=== PATIENT | female | born 1960 | race Caucasian/White ===

== ENCOUNTER 2017-04-11 16:55 | Emergency (ER) | payer BC, OTHER ==
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
[2017-04-11 17:14] VITALS: BP 153/91; PULSE 121; TEMP 98.3; BMI 18.3
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
[2017-04-11] MEDS ORDERED: DIPHTH,PERTUSS(ACELL),TET 0.5 ML DISP.SYRIN IM ONE (19:01)
[2017-04-11 19:24] LABS: BASOPHIL 1.1 % (0-2.0); EOSINOPHIL 1.1 % (0-4.5); MCHC 33.5 g/dl (32.0-36.0); MEAN CELL VOLUME 98.5 fl (80-96); MEAN PLT VOLUME 9.3 fl (7.5-11.1); NEUTROPHILS 61.4 % (42.8-82.8); PLATELET COUNT 237 K/MM3 (134-434); RDW 12.9 % (11.6-15.6); WHITE BLOOD COUNT 10.2 K/mm3 (4.0-10.0)
[2017-04-11 19:46] LABS: ALBUMIN 4.1 g/dl (3.4-5.0); ANION GAP 9 (8-16); BILIRUBIN,TOTAL 0.6 mg/dL (0.2-1.0); CALCIUM 9.7 mg/dL (8.5-10.1); CHOLESTEROL 208 mg/dL (50-200); CO2 31 mmol/L (21-32); CREATININE 0.8 mg/dL (0.55-1.02); GLUCOSE,RANDOM 98 mg/dL (74-106); LDH 173 U/L (84-246); PHOSPHOROUS 3.8 mg/dL (2.5-4.9); SGOT/AST 19 U/L (15-37); SGPT/ALT 21 U/L (12-78); TOT PROT 7.3 g/dl (6.4-8.2)
[2017-04-11 19:47] LABS: ALK PHOS 90 U/L (45-117)
[2017-04-11 20:00] LABS: HIV 1 & 2 AB NEGATIVE; HIV 1 AGp24 NEGATIVE
[2017-04-13 06:06] LABS: HEP B SURFACE AB Non Reactive (.)
== END 2017-04-11 20:19 | disposition home or self-care (01) ==
LOC: JERFT 16:55
DX: S61.230A Puncture wound without foreign body of right index finger without damage to nail, initial encounter (principal); W46.1XXA Contact with contaminated hypodermic needle, initial encounter; Y93.E9 Activity, other interior property and clothing maintenance; Y92.013 Bedroom of single-family (private) house as the place of occurrence of the external cause
CPT/HCPCS: 36415; 80053; 82465; 83615; 84100; 84478; 85025; 86704; 86706; 87340; 87389; 90715; 99281-25

== ENCOUNTER 2018-10-20 13:05 | Emergency (ER) | payer OTHER ==
[2018-10-20 13:43] VITALS: BP 111/67; PULSE 84; TEMP 98.3; BMI 19.0
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
== END 2018-10-20 14:57 | disposition home or self-care (01) ==
LOC: JERFT 13:05 → JER 13:05 → JERFT 14:57
DX: S93.504A Unspecified sprain of right lesser toe(s), initial encounter (principal); M25.531 Pain in right wrist; W22.03XA Walked into furniture, initial encounter; Y93.89 Activity, other specified; Y92.009 Unspecified place in unspecified non-institutional (private) residence as the place of occurrence of the external cause; F41.9 Anxiety disorder, unspecified; I10 Essential (primary) hypertension; F17.210 Nicotine dependence, cigarettes, uncomplicated
CPT/HCPCS: 73110-TC-RT-FY; 73630-TC-RT-FY; 73660-TC-FY; 99281-25

== ENCOUNTER 2019-01-28 00:11 | Emergency (ER) | payer OTHER ==
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
[2019-01-28 01:35] VITALS: BP 138/82; PULSE 95; TEMP 98.1; BMI 26.5
[2019-01-28] MEDS ORDERED: LIDOCAINE HCL 1%, 10 MG/ML (50 mL VIAL) SQ ONE (01:47)
[2019-01-28] MEDS ORDERED: LIDOCAINE HCL 1%, 10 MG/ML (20ML VIAL) ONE (01:49)
== END 2019-01-28 02:24 | disposition home or self-care (01) ==
LOC: JER 00:11
PROC: 0HQ0XZZ Repair Scalp Skin, External Approach (ICD-10-PCS; principal; 2019-01-28)
PROC: 3E023BZ Introduction of Anesthetic Agent into Muscle, Percutaneous Approach (ICD-10-PCS; 2019-01-28)
DX: F10.120 Alcohol abuse with intoxication, uncomplicated (principal); S01.81XA Laceration without foreign body of other part of head, initial encounter; W18.39XA Other fall on same level, initial encounter; Y93.89 Activity, other specified; Y92.018 Other place in single-family (private) house as the place of occurrence of the external cause; Y99.8 Other external cause status
CPT/HCPCS: 12002; 70450-TC; 72125-TC; 96372; 99281-25

== ENCOUNTER 2019-02-05 10:39 | Emergency (ER) | payer OTHER ==
[2019-02-05 10:47] VITALS: BP 138/76; PULSE 80; TEMP 98; BMI 27.2
--- NOTE | 2019-02-05 11:33 | PDOC ---
History of Present Illness - General Chief Complaint: Suture/Staple Removal(Here) Stated Complaint: REMOVE STITCHES Time Seen by Provider: 02/05/19 11:12 History Source: Patient Exam Limitations: No Limitations Past History - Travel Traveled outside of the country in the last 30 days: No Close contact w/someone who was outside of country & ill: No - Past Medical History Allergies/Adverse Reactions: Allergies Allergy/AdvReac Type Severity Reaction Status Date / Time No Known Allergies Allergy Verified 02/05/19 10:47 Home Medications: Ambulatory Orders Buspirone HCl [Buspar -] 10 mg PO DAILY 10/20/18 Ibuprofen [Ibu] 600 mg PO QID PRN #20 tablet 10/20/18 Metoprolol Succinate [Toprol Xl] 100 mg PO ASDIR 10/20/18 COPD: No HTN: Yes Psychiatric Problems: Yes (ANXIETY) - Immunization History Immunization Up to Date: Yes - Suicide/Smoking/Psychosocial Hx Smoking History: Current every day smoker Have you smoked in the past 12 months: Yes Number of Cigarettes Smoked Daily: 20 Information on smoking cessation initiated: Yes 'Breaking Loose' booklet given: 01/18/15 Hx Alcohol Use: Yes Drug/Substance Use Hx: No Substance Use Type: Alcohol Hx Substance Use Treatment: No Review of Systems - Review of Systems Able to Perform ROS?: Yes Comments:: 02/05/19 11:32 CONSTITUTIONAL: Absent: fever, chills, diaphoresis, generalized weakness, malaise, loss of appetite MUSCULOSKELETAL: Present: L knee pain Absent: myalgia, joint swelling SKIN: Present: walter to head Absent: rash, itching, pallor NEUROLOGIC: Absent: headache, focal weakness or paresthesias, dizziness, unsteady gait, seizure, mental status changes, bladder or bowel incontinence PSYCHIATRIC: Absent: anxiety, depression, suicidal or homicidal ideation, hallucinations. Is the patient limited Ugandan proficient: No *Physical Exam - Vital Signs Last Vital Signs Temp Pulse Resp BP Pulse Ox 98.0 F 80 17 138/76 96 02/05/19 10:44 02/05/19 10:44 02/05/19 10:44 02/05/19 10:44 02/05/19 10:44 - Physical Exam Comments: 02/05/19 11:32 GENERAL: Well developed, well nourished. Awake and alert. No acute distress. HEENT: Normocephalic, atraumatic. PERRLA, EOMI. No conjunctival pallor. Sclera are non- icteric. Moist mucous membranes. Oropharynx is clear. NECK: Supple. Full ROM. No JVD. Carotid pulses 2+ and symmetric, without bruits. No thyromegaly. No lymphadenopathy. MUSCULOSKELETAL TTP of the L lateral knee without swelling. (-) lachmans and george's testing. Normal range of motion at all joints. No CVA tenderness. EXTREMITIES: No cyanosis. No clubbing. No edema. No calf tenderness. SKIN: [address] to the R occiput. Wound is well approximated with no signs of secondary infectionWarm and dry. Normal capillary refill. No rashes. No jaundice. NEUROLOGICAL: Alert, awake, appropriate. Cranial nerves 2-12 intact. No deficits to light touch and temperature in face, upper extremities and lower extremities. No motor deficits in the in face, upper extremities and lower extremities. Normoreflexic in the upper and lower extremities. Normal speech. Toes are down- going bilaterally. Gait is normal without ataxia. PSYCHIATRIC: Cooperative. Good eye contact. Appropriate mood and affect. Medical Decision Making - Medical Decision Making 02/05/19 19:42 The patient is a 58-year-old female who presents to the ER today for suture removal to her right occiput. Patient fell 5 days ago and presents to have the walter removed. She also complains of left knee pain. She states it hurts to walk. Denies swelling, numbness and tingling to the extremities and weakness to the extremity. Patient's tetanus is up-to-date. A/P: Staple removal, left knee pain On exam patient point tenderness the left lateral knee. X-ray obtained of the knee. No acute pathology. We'll refer to orthopedics. [place] removed without incident. Wound is well-healed an approximate without evidence of secondary infection. Discharge home I discussed the physical exam findings, ancillary test results and final diagnoses with the patient. I answered all of the patient's questions. The patient was satisfied with the care received and felt comfortable with the discharge plan and treatment plan. The Patient agrees to follow up with the primary care physician/specialist within 24-72 hours. Return precautions were given. *DC/Admit/Observation/Transfer Diagnosis at time of Disposition: Visit for suture removal Lateral knee pain Qualifiers: Laterality: left Qualified Code(s): M25.562 - Pain in left knee - Discharge Dispostion Disposition: HOME Condition at time of disposition: Stable Decision to Admit order: No - Referrals - Patient Instructions Printed Discharge Instructions: DI for Suture Removal Additional Instructions: Your walter were removed today You may use bacitracin to the area twice a day Your x-ray was negative for fractures Please follow up with orthopedics for your pain You may take Motrin 600mg every 6 hours as needed for pain Return to the ED For any new or worsening symptoms - Post Discharge Activity Forms/Work/School Notes: Back to Work
== END 2019-02-05 13:10 | disposition home or self-care (01) ==
LOC: JERFT 10:39
DX: Z48.817 Encounter for surgical aftercare following surgery on the skin and subcutaneous tissue (principal); Z48.02 Encounter for removal of sutures
CPT/HCPCS: 73562-TC-LT-FY; 99281-25

== ENCOUNTER 2021-04-27 12:23 | Emergency (ER) | payer BC, OTHER ==
[2021-04-27 12:33] VITALS: BMI 19.0
[2021-04-27] MEDS ORDERED: METOCLOPRAMIDE HCL INJECTION 10 MG/2 ML VIAL IVPB ONE (13:19)
[2021-04-27] MEDS ORDERED: SODIUM CHLORIDE 0.9% 500 ML INFUS.BAG IV ONE ×2 (13:19→17:29)
[2021-04-27] MEDS ORDERED: METOCLOPRAMIDE HCL INJECTION 10 MG/2 ML VIAL ONE (13:32)
[2021-04-27 14:10] LABS: BASO % 0.4 % (0-2.0); EOS % 1.3 % (0-4.5); HEMATOCRIT 53.8 % (32.4-45.2); HEMOGLOBIN 18.4 GM/dL (10.7-15.3); LYMPH % 17.4 % (8-40); MCH 33.9 pg (25.7-33.7); MCHC 34.2 g/dl (32.0-36.0); MEAN PLT VOLUME 8.7 fl (7.5-11.1); MONO % 6.9 % (3.8-10.2); PLATELET COUNT 198 10^3/uL (134-434); RBC 5.43 M/mm3 (3.60-5.2); RDW 12.9 % (11.6-15.6); WHITE BLOOD COUNT 8.6 K/mm3 (4.0-10.0)
[2021-04-27 14:30] LABS: CHLORIDE 100 mmol/L (98-107); SODIUM 134 mmol/L (136-145)
[2021-04-27 14:33] LABS: ALBUMIN 3.9 g/dl (3.4-5.0); ANION GAP 8 MMOL/L (8-16); BLOOD UREA NITROGEN 4.8 mg/dL (7-18); CO2 26 mmol/L (21-32); GLUCOSE,RANDOM 103 mg/dL (74-106)
[2021-04-27 14:36] LABS: CREATININE 0.6 mg/dL (0.55-1.3); SGOT/AST 24 U/L (15-37); SGPT/ALT 26 U/L (13-61)
[2021-04-27 14:37] LABS: BILIRUBIN,TOTAL 0.6 mg/dL (0.2-1); TOT PROT 7.4 g/dl (6.4-8.2)
[2021-04-27 14:39] LABS: ALK PHOS 106 U/L (45-117)
[2021-04-27 15:36] LABS: PH,URINE 6.5 (5.0-8.0); URINE APPEARANCE CLEAR; URINE BILIRUBIN NEGATIVE (NEGATIVE); URINE COLOR YELLOW; URINE GLUCOSE (UA) NEGATIVE (NEGATIVE); URINE KETONE NEGATIVE (NEGATIVE); URINE LEUK ESTERASE NEGATIVE (NEGATIVE); URINE NITRITE NEGATIVE (NEGATIVE); URINE PROTEIN NEGATIVE (NEGATIVE); URINE UROBILINOGEN 0.2 mg/dL (0.2-1.0)
[2021-04-27 17:49] VITALS: BP 147/85; PULSE 78; TEMP 98
== END 2021-04-27 18:20 | disposition home or self-care (01) ==
LOC: JER 12:23
PROC: 3E033GC Introduction of Other Therapeutic Substance into Peripheral Vein, Percutaneous Approach (ICD-10-PCS; principal; 2021-04-27)
DX: R42 Dizziness and giddiness (principal); I10 Essential (primary) hypertension
CPT/HCPCS: 36415; 70450-TC; 80053; 81003; 82550; 84484; 85025; 87086; 93005; 93010; 99285-25

== ENCOUNTER 2024-05-31 13:57 | Emergency (ER) | payer BC, OTHER ==
[2024-05-31 14:06] VITALS: RESP 18; TEMP 98; BMI 18.6
[2024-05-31] MEDS ORDERED: busPIRone HCL 5 MG TABLET ONE (14:32)
[2024-05-31] MEDS: busPIRone HCL 5 MG TABLET PO ONE (14:37)
[2024-05-31 15:32] VITALS: BP 146/91; PULSE 95
== END 2024-05-31 15:35 | disposition home or self-care (01) ==
LOC: JERFT 13:57
DX: S93.601A Unspecified sprain of right foot, initial encounter (principal); X50.1XXA Overexertion from prolonged static or awkward postures, initial encounter
CPT/HCPCS: 73610-TC-RT-FY; 73630-TC-RT-FY; 93005; 93010; 99284-25

== ENCOUNTER 2024-07-01 02:40 | Emergency (ER) | payer BC ==
[2024-07-01 02:50] VITALS: RESP 18; BMI 19.1
[2024-07-01] MEDS ORDERED: ACETAMINOPHEN INJECTION 100 ML ONE (03:43)
[2024-07-01] MEDS: ACETAMINOPHEN 1000 MG/100 ML BAG IVPB ONE ×2 (04:01)
[2024-07-01] MEDS: LACTATED RINGERS SOLUTION 1000 ML INFUS.BAG IV ONE ×2 (04:01)
[2024-07-01 04:15] LABS: EPI CELLS 19 /uL (0-25.1); HYALINE CASTS 3 /uL (0-3.1); URINE APPEARANCE CLOUDY; URINE BACTERIA >9,000 /uL (0-1359); URINE BILIRUBIN NEGATIVE (NEGATIVE); URINE COLOR YELLOW; URINE GLUCOSE (UA) NEGATIVE (NEGATIVE); URINE KETONE NEGATIVE (NEGATIVE); URINE LEUK ESTERASE 2+ (NEGATIVE); URINE NITRITE POSITIVE (NEGATIVE); URINE PROTEIN TRACE (NEGATIVE); URINE RBC 10 /uL (0-23.9); URINE WBC 490 /uL (0-25.8)
[2024-07-01 04:17] LABS: BASO % 0.3 % (0-2.0); EOS % 0.5 % (0-4.5); HEMATOCRIT 52.7 % (32.4-45.2); HEMOGLOBIN 17.5 GM/dL (10.7-15.3); LYMPH % 14.6 % (8-40); MCH 28.6 pg (25.7-33.7); MCHC 33.3 g/dl (32.0-36.0); MEAN CELL VOLUME 85.8 fl (80-96); MEAN PLT VOLUME 8.4 fl (7.5-11.1); MONO % 6.3 % (3.8-10.2); NEUT % 78.3 % (42.8-82.8); PLATELET COUNT 229 10^3/uL (134-434); RBC 6.14 M/mm3 (3.60-5.2); WHITE BLOOD COUNT 13.3 K/mm3 (4.0-10.0)
[2024-07-01 04:32] LABS: POTASSIUM 4.5 mmol/L (3.5-5.1)
[2024-07-01 04:34] LABS: ALBUMIN 3.2 g/dl (3.4-5.0)
[2024-07-01 04:35] LABS: BLOOD UREA NITROGEN 6.6 mg/dL (7-18)
[2024-07-01 04:37] LABS: CREATININE 0.5 mg/dL (0.55-1.3)
[2024-07-01 04:39] LABS: BILIRUBIN,TOTAL 0.7 mg/dL (0.2-1); TOT PROT 7.3 g/dl (6.4-8.2)
[2024-07-01] MEDS ORDERED: KETOROLAC TROMETHAMINE 15 MG/ML VIAL ONE (04:39)
[2024-07-01] MEDS: KETOROLAC TROMETHAMINE 15 MG/ML VIAL IVPUSH ONE (04:43)
[2024-07-01] MEDS ORDERED: CEFTRIAXONE 1 GM/50 ML BAG ONE (06:23)
[2024-07-01] MEDS: CEFTRIAXONE 1 GM in DEXTROSE 5%-WATER - 100 ML IVPB ONE (06:31)
[2024-07-01 06:51] VITALS: BP 172/93; PULSE 100; TEMP 98.4
== END 2024-07-01 07:45 | disposition home or self-care (01) ==
LOC: JER 02:40
PROC: 3E03329 Introduction of Other Anti-infective into Peripheral Vein, Percutaneous Approach (ICD-10-PCS; principal; 2024-07-01)
PROC: 3E033NZ Introduction of Analgesics, Hypnotics, Sedatives into Peripheral Vein, Percutaneous Approach (ICD-10-PCS; 2024-07-01)
PROC: 3E0333Z Introduction of Anti-inflammatory into Peripheral Vein, Percutaneous Approach (ICD-10-PCS; 2024-07-01)
DX: N39.0 Urinary tract infection, site not specified (principal); K56.1 Intussusception; R11.2 Nausea with vomiting, unspecified; R10.31 Right lower quadrant pain; R10.32 Left lower quadrant pain; R35.0 Frequency of micturition; R19.7 Diarrhea, unspecified
CPT/HCPCS: 36415; 74177-TC; 80053; 81003; 83690; 84484; 85025; 87086; 87186; 93005; 93010; 96365; 96375; 99285-25; J0131; Q9967

== ENCOUNTER 2024-07-01 12:05 | Inpatient (IN) | payer BC, OTHER ==
[2024-07-01] MEDS ORDERED: ACETAMINOPHEN INJECTION 100 ML ONE (12:50)
[2024-07-01] MEDS: ACETAMINOPHEN 1000 MG/100 ML BAG IVPB ONE (13:12)
[2024-07-01] MEDS ORDERED: morphine SULFATE 4 MG/ML VIAL ONE (13:13)
[2024-07-01 13:19] LABS: BASO % 0.2 % (0-2.0); EOS % 0.7 % (0-4.5); HEMATOCRIT 56.9 % (32.4-45.2); HEMOGLOBIN 18.6 GM/dL (10.7-15.3); LYMPH % 12.5 % (8-40); MCH 28.3 pg (25.7-33.7); MCHC 32.7 g/dl (32.0-36.0); MEAN CELL VOLUME 86.6 fl (80-96); MEAN PLT VOLUME 8.3 fl (7.5-11.1); MONO % 6.4 % (3.8-10.2); NEUT % 80.2 % (42.8-82.8); PLATELET COUNT 262 10^3/uL (134-434); RBC 6.57 M/mm3 (3.60-5.2); RDW 17.4 % (11.6-15.6); WHITE BLOOD COUNT 15.1 K/mm3 (4.0-10.0)
[2024-07-01] MEDS: morphine SULFATE 4 MG/ML VIAL IVPUSH ONE (13:19)
[2024-07-01] MEDS ORDERED: ONDANSETRON 4 MG/2 ML VIAL ONE (13:20)
[2024-07-01] MEDS: ONDANSETRON 4 MG/2 ML VIAL IVPB ONE (13:23)
[2024-07-01 13:49] LABS: ALBUMIN 3.5 g/dl (3.4-5.0); BLOOD UREA NITROGEN 5.6 mg/dL (7-18)
[2024-07-01 13:52] LABS: CREATININE 0.5 mg/dL (0.55-1.3)
[2024-07-01 13:53] LABS: BILIRUBIN,TOTAL 0.7 mg/dL (0.2-1); TOT PROT 7.5 g/dl (6.4-8.2)
[2024-07-01 14:18] LABS: INR 0.96 (0.83-1.09); PROTHROMBIN TIME (PATIENT) 10.9 SEC (9.7-13.0)
[2024-07-01 14:21] LABS: ACTIVATED PTT 30.8 SECONDS (25.2-36.5)
[2024-07-01] MEDS: ACETAMINOPHEN 1000 MG/100 ML BAG IVPB PRN (18:32)
[2024-07-01] MEDS: D5-1/2NS+20 MEQ KCL - 20 MEQ/1,000 ML INFUS.BAG IV SCH (18:35)
[2024-07-02] MEDS: CEFTRIAXONE 1 GM in DEXTROSE 5%-WATER - 50 ML IVPB SCH (06:03)
[2024-07-02 07:58] LABS: BASO % 0.3 % (0-2.0); EOS % 2.4 % (0-4.5); HEMATOCRIT 53.3 % (32.4-45.2); HEMOGLOBIN 17.2 GM/dL (10.7-15.3); MCH 28.5 pg (25.7-33.7); MCHC 32.2 g/dl (32.0-36.0); MEAN CELL VOLUME 88.4 fl (80-96); MEAN PLT VOLUME 8.9 fl (7.5-11.1); MONO % 5.8 % (3.8-10.2); NEUT % 77.5 % (42.8-82.8); PLATELET COUNT 242 10^3/uL (134-434); RBC 6.03 M/mm3 (3.60-5.2); RDW 17.4 % (11.6-15.6); WHITE BLOOD COUNT 13.9 K/mm3 (4.0-10.0)
[2024-07-02 08:11] LABS: POTASSIUM 3.8 mmol/L (3.5-5.1)
[2024-07-02 08:22] LABS: BLOOD UREA NITROGEN 5.7 mg/dL (7-18); CALCIUM 8.5 mg/dL (8.5-10.1)
[2024-07-02 08:23] LABS: CREATININE 0.5 mg/dL (0.55-1.3)
[2024-07-02 08:24] LABS: BILIRUBIN,TOTAL 0.6 mg/dL (0.2-1); TOT PROT 5.9 g/dl (6.4-8.2)
[2024-07-02 08:39] LABS: ALBUMIN 2.8 g/dl (3.4-5.0)
[2024-07-02] MEDS: busPIRone HCL 10 MG TABLET (FP) PO SCH (09:53)
[2024-07-02] MEDS: ONDANSETRON 4 MG/2 ML VIAL IVPUSH PRN (09:53)
[2024-07-02] MEDS ORDERED: BUPIVACAINE HCL/PF 0.25% (2.5MG/ML) 10 ML VIAL ONE (13:46)
[2024-07-02 15:21] VITALS: BMI 17.7
[2024-07-02] MEDS ORDERED: SUGAMMADEX SODIUM 200 MG/2 ML VIAL ONE ×2 (15:32)
[2024-07-02] MEDS ORDERED: ROCURONIUM BROMIDE 50 MG/5 ML SYRINGE ONE (15:32)
[2024-07-02] MEDS ORDERED: SUCCINYLCHOLINE CHLORIDE 200 MG/10 ML SYRINGE ONE (15:32)
[2024-07-02] MEDS ORDERED: PROPOFOL 40 ML ONE (17:37)
[2024-07-02] MEDS ORDERED: MIDAZOLAM HCL 2 MG/2 ML SINGLE DOSE VIAL ONE (17:38)
[2024-07-02] MEDS: cefOXitin SODIUM 2 GM VIAL (RESTRICTED TO ID) IVPB ONE ×2 (18:06)
[2024-07-02] MEDS: BUPIVACAINE HCL/PF 0.25% (2.5MG/ML) 10 ML VIAL IJ ONE ×2 (18:13)
[2024-07-02] MEDS ORDERED: GLYCOPYRROLATE 0.2 MG/1 ML VIAL ONE (21:30)
[2024-07-02] MEDS ORDERED: NEOSTIGMINE METHYLSULFATE 0.5 MG/1 ML - 10 ML MDV ONE (21:30)
[2024-07-02] MEDS ORDERED: ONDANSETRON 4 MG/2 ML VIAL IVPUSH PRN ×2 (21:54→22:34)
[2024-07-02] MEDS ORDERED: ACETAMINOPHEN INJECTION 100 ML ONE (21:59)
[2024-07-02] MEDS ORDERED: LACTATED RINGERS SOLUTION 1,000 ML IV SCH (22:00)
[2024-07-02] MEDS ORDERED: morphine SULFATE 4 MG/ML VIAL IM PRN (22:34)
[2024-07-02] MEDS ORDERED: D5-1/2NS+20 MEQ KCL - 20 MEQ/1,000 ML INFUS.BAG IV SCH (22:34)
[2024-07-02] MEDS: ACETAMINOPHEN 1000 MG/100 ML BAG IVPB SCH (22:37)
[2024-07-02] MEDS ORDERED: KETOROLAC TROMETHAMINE 30 MG/1 ML VIAL ONE (22:40)
[2024-07-02] MEDS: LACTATED RINGERS SOLUTION 1,000 ML IV SCH (22:52)
[2024-07-02] MEDS: KETOROLAC TROMETHAMINE 15 MG/ML VIAL IVPUSH PRN (23:00)
[2024-07-03] MEDS: LACTATED RINGERS SOLUTION 1,000 ML IV SCH ×2 (00:12→09:14)
[2024-07-03] MEDS: PIPERACILLIN/TAZOB 3.375 GM 3.375 GM in DEXTROSE 5%-WATER - 50 ML IVPB SCH (01:43)
[2024-07-03] MEDS: LACTATED RINGERS SOLUTION 1000 ML INFUS.BAG IV ONE (09:14)
[2024-07-03] MEDS: ENOXAPARIN NA (PORCINE) 40 MG/0.4 ML DISP.SYRIN SQ SCH (09:14)
[2024-07-04 10:10] LABS: BASO % 0.2 % (0-2.0); EOS % 1.1 % (0-4.5); HEMATOCRIT 45.6 % (32.4-45.2); LYMPH % 5.5 % (8-40); MCH 28.9 pg (25.7-33.7); MCHC 32.9 g/dl (32.0-36.0); MEAN CELL VOLUME 87.8 fl (80-96); MEAN PLT VOLUME 9.4 fl (7.5-11.1); MONO % 2.3 % (3.8-10.2); NEUT % 90.9 % (42.8-82.8); PLATELET COUNT 208 10^3/uL (134-434); RBC 5.19 M/mm3 (3.60-5.2); RDW 17.3 % (11.6-15.6); WHITE BLOOD COUNT 15.9 K/mm3 (4.0-10.0)
[2024-07-04 10:20] LABS: POTASSIUM 4.3 mmol/L (3.5-5.1)
[2024-07-04 10:23] LABS: BLOOD UREA NITROGEN 18.2 mg/dL (7-18); CALCIUM 8.3 mg/dL (8.5-10.1); MAGNESIUM 1.8 mg/dL (1.8-2.4)
[2024-07-04 10:26] LABS: CREATININE 0.6 mg/dL (0.55-1.3)
[2024-07-04 10:27] LABS: PHOSPHOROUS 2.4 mg/dL (2.5-4.9)
[2024-07-04] MEDS: ACETAMINOPHEN 500 MG TABLET (FP) PO SCH (13:39)
[2024-07-04] MEDS: ONDANSETRON 4 MG/2 ML VIAL IVPUSH PRN (23:42)
[2024-07-05] MEDS: TRIMETHOBENZAMIDE HCL 200MG/2ML INJ IM ONE (03:53)
[2024-07-05] MEDS: DEXTROSE 50%-WATER 25 GM/50 ML DISP.SYRIN IVPUSH ONE (06:08)
[2024-07-05 06:13] LABS: HEMATOCRIT 42.6 % (32.4-45.2); HEMOGLOBIN 14.1 GM/dL (10.7-15.3); MCH 28.9 pg (25.7-33.7); MCHC 33.1 g/dl (32.0-36.0); MEAN CELL VOLUME 87.4 fl (80-96); MEAN PLT VOLUME 9.2 fl (7.5-11.1); PLATELET COUNT 235 10^3/uL (134-434); RBC 4.88 M/mm3 (3.60-5.2); RDW 17.8 % (11.6-15.6); WHITE BLOOD COUNT 16.8 K/mm3 (4.0-10.0)
[2024-07-05 06:32] LABS: POTASSIUM 3.8 mmol/L (3.5-5.1)
[2024-07-05 06:33] LABS: CALCIUM 8.3 mg/dL (8.5-10.1)
[2024-07-05 06:34] LABS: BLOOD UREA NITROGEN 18.2 mg/dL (7-18)
[2024-07-05 06:37] LABS: CREATININE 0.4 mg/dL (0.55-1.3)
[2024-07-05] MEDS: FAMOTIDINE 20 MG/50 ML IVPB 20 MG/50 ML MG IVPB ONE (06:39)
[2024-07-05 08:39] LABS: ANISOCYTOSIS 0; MACROCYTOSIS 0
[2024-07-05] MEDS: LACTATED RINGERS SOLUTION 1000 ML INFUS.BAG IV ONE (09:38)
[2024-07-05] MEDS: METOPROLOL TARTRATE 5 MG/5 ML VIAL IVPUSH ONE (10:27)
[2024-07-05] MEDS: METOPROLOL TARTRATE 5 MG/5 ML VIAL IVPB ONE (10:33)
[2024-07-05] MEDS: ONDANSETRON 4 MG/2 ML VIAL IVPUSH PRN (10:33)
[2024-07-05] MEDS ORDERED: METOPROLOL TARTRATE 5 MG/5 ML VIAL IVPUSH PRN (14:20)
[2024-07-05] MEDS: METOPROLOL TARTRATE 5 MG/5 ML VIAL IVPB PRN (15:24)
[2024-07-05] MEDS: MELATONIN 5 MG TABLETS PO PRN (21:56)
[2024-07-05] MEDS: LACTATED RINGERS SOLUTION 1,000 ML IV SCH (22:37)
[2024-07-05] MEDS: AMINO ACIDS 4.25%/D5W 1,000 ML IV SCH (22:38)
[2024-07-05] MEDS: NITROGLYCERIN 2% OINTMENT - 1GM PACKET TD ONE (23:04)
[2024-07-05] MEDS ORDERED: ACETAMINOPHEN 1000 MG/100 ML BAG IVPB PRN (23:28)
[2024-07-06] MEDS: PROMETHAZINE HCL 25 MG/1 ML VIAL IVPB ONE (00:37)
[2024-07-06] MEDS: ACETAMINOPHEN 1000 MG/100 ML BAG IVPB PRN (00:38)
[2024-07-06 07:36] LABS: BASO % 0.2 % (0-2.0); EOS % 0.8 % (0-4.5); HEMATOCRIT 38.5 % (32.4-45.2); HEMOGLOBIN 13.1 GM/dL (10.7-15.3); LYMPH % 10.3 % (8-40); MCH 29.2 pg (25.7-33.7); MEAN CELL VOLUME 85.7 fl (80-96); MEAN PLT VOLUME 8.8 fl (7.5-11.1); MONO % 5.1 % (3.8-10.2); NEUT % 83.6 % (42.8-82.8); PLATELET COUNT 278 10^3/uL (134-434); RBC 4.49 M/mm3 (3.60-5.2); RDW 17.4 % (11.6-15.6); WHITE BLOOD COUNT 10.3 K/mm3 (4.0-10.0)
[2024-07-06 07:55] LABS: CHLORIDE 92 mmol/L (98-107); SODIUM 131 mmol/L (136-145)
[2024-07-06 07:57] LABS: ANION GAP 10 mmol/L (4-13); BLOOD UREA NITROGEN 12.4 mg/dL (7-18); CO2 29 mmol/L (21-32); GLUCOSE,RANDOM 111 mg/dL (74-106); POTASSIUM 2.8 mmol/L (3.5-5.1)
[2024-07-06 08:01] LABS: ALBUMIN 2.2 g/dl (3.4-5.0); CREATININE 0.3 mg/dL (0.55-1.3); SGOT/AST 20 U/L (15-37); SGPT/ALT 13 U/L (13-61)
[2024-07-06 08:02] LABS: BILIRUBIN,TOTAL 0.7 mg/dL (0.2-1); TOT PROT 5.3 g/dl (6.4-8.2)
[2024-07-06 08:04] LABS: ALK PHOS 105 U/L (45-117)
[2024-07-06] MEDS: KCL 10 MEQ IVPB 10 MEQ/100 ML INFUS.BAG IVPB SCH (10:59)
[2024-07-06 16:58] LABS: POTASSIUM 3.6 mmol/L (3.5-5.1)
[2024-07-06 17:00] LABS: CALCIUM 8.2 mg/dL (8.5-10.1)
[2024-07-06 17:01] LABS: BLOOD UREA NITROGEN 12.5 mg/dL (7-18); MAGNESIUM 1.9 mg/dL (1.8-2.4)
[2024-07-06 17:03] LABS: CREATININE 0.4 mg/dL (0.55-1.3)
[2024-07-07] MEDS: POTASSIUM CHLORIDE 20 MEQ in AMINO ACIDS 4.25%/D5W 1,000 ML IV SCH (00:27)
[2024-07-07 08:32] LABS: BASO % 0.1 % (0-2.0); EOS % 1.6 % (0-4.5); HEMATOCRIT 37.3 % (32.4-45.2); HEMOGLOBIN 12.5 GM/dL (10.7-15.3); LYMPH % 15.1 % (8-40); MCH 28.9 pg (25.7-33.7); MCHC 33.6 g/dl (32.0-36.0); MEAN CELL VOLUME 86.2 fl (80-96); MEAN PLT VOLUME 8.6 fl (7.5-11.1); MONO % 11.3 % (3.8-10.2); NEUT % 71.9 % (42.8-82.8); PLATELET COUNT 290 10^3/uL (134-434); RBC 4.32 M/mm3 (3.60-5.2); RDW 17.2 % (11.6-15.6); WHITE BLOOD COUNT 8.2 K/mm3 (4.0-10.0)
[2024-07-07 08:45] LABS: POTASSIUM 3.3 mmol/L (3.5-5.1)
[2024-07-07 08:47] LABS: BLOOD UREA NITROGEN 11.6 mg/dL (7-18); CALCIUM 7.7 mg/dL (8.5-10.1)
[2024-07-07 08:51] LABS: CREATININE 0.3 mg/dL (0.55-1.3)
[2024-07-07] MEDS: KCL 10 MEQ IVPB 10 MEQ/100 ML INFUS.BAG IVPB SCH ×2 (11:48→15:05)
[2024-07-07 16:07] LABS: PH,URINE 7.5 (5.0-8.0); URINE APPEARANCE CLEAR; URINE BILIRUBIN NEGATIVE (NEGATIVE); URINE COLOR YELLOW; URINE GLUCOSE (UA) NEGATIVE (NEGATIVE); URINE KETONE TRACE (NEGATIVE); URINE LEUK ESTERASE NEGATIVE (NEGATIVE); URINE NITRITE NEGATIVE (NEGATIVE); URINE PROTEIN NEGATIVE (NEGATIVE); URINE UROBILINOGEN 0.2 mg/dL (0.2-1.0)
[2024-07-08] MEDS: FAMOTIDINE 20 MG/50 ML IVPB 20 MG/50 ML MG IVPB ONE (05:59)
[2024-07-08 09:16] LABS: HEMATOCRIT 37.1 % (32.4-45.2); HEMOGLOBIN 12.4 GM/dL (10.7-15.3); MCH 28.8 pg (25.7-33.7); MCHC 33.4 g/dl (32.0-36.0); MEAN CELL VOLUME 86.1 fl (80-96); MEAN PLT VOLUME 8.6 fl (7.5-11.1); PLATELET COUNT 307 10^3/uL (134-434); RDW 16.6 % (11.6-15.6); WHITE BLOOD COUNT 10.1 K/mm3 (4.0-10.0)
[2024-07-08 09:35] LABS: CHLORIDE 94 mmol/L (98-107); POTASSIUM 3.5 mmol/L (3.5-5.1); SODIUM 129 mmol/L (136-145)
[2024-07-08 09:42] LABS: ALBUMIN 2.1 g/dl (3.4-5.0); ANION GAP 8 mmol/L (4-13); CALCIUM 7.9 mg/dL (8.5-10.1); CO2 27 mmol/L (21-32); GLUCOSE,RANDOM 86 mg/dL (74-106)
[2024-07-08 09:43] LABS: BLOOD UREA NITROGEN 6.9 mg/dL (7-18)
[2024-07-08 09:46] LABS: CREATININE 0.3 mg/dL (0.55-1.3); SGOT/AST 78 U/L (15-37); SGPT/ALT 55 U/L (13-61)
[2024-07-08 09:47] LABS: TOT PROT 5.1 g/dl (6.4-8.2)
[2024-07-08 09:49] LABS: BILIRUBIN,TOTAL 0.9 mg/dL (0.2-1)
[2024-07-08 09:52] LABS: ALK PHOS 317 U/L (45-117)
[2024-07-08 10:13] LABS: ANISOCYTOSIS 0; HELMET CELLS 0; HOWELL-JOLLY BODIES 0; MACROCYTOSIS 0; OVALOCYTE 0; ROULEAU 0; SICKELED CELLS 0; TARGET CELLS 0; TEAR DROP CELLS 0; TOXIC GRANULATION 0
[2024-07-08] MEDS ORDERED: SODIUM CHLORIDE 1,000 ML IV SCH (12:00)
[2024-07-08 12:43] LABS: PHOSPHOROUS 0.9 mg/dL (2.5-4.9)
[2024-07-08] MEDS: METOPROLOL TARTRATE 5 MG/5 ML VIAL IVPB SCH (14:10)
[2024-07-08] MEDS: SODIUM PHOSPHATE - 15 MM in SODIUM CHLORIDE 250 ML IVPB ONE (14:12)
[2024-07-08] MEDS: MULTIVIT IV SCH (14:14)
[2024-07-08] MEDS: [UNRECOGNIZED DRUG - OTHER] IV SCH (14:14)
[2024-07-08] MEDS: POTASSIUM CHLORIDE IV SCH (14:14)
[2024-07-08] MEDS: SODIUM CHLORIDE 1,000 ML IV SCH (14:22)
[2024-07-08] MEDS: FAMOTIDINE 20 MG/50 ML IVPB 20 MG/50 ML MG IVPB SCH (21:19)
[2024-07-08] MEDS: FAT EMULSION/OLIVE/SOY/PHOSPHO 250 ML IV SCH (21:19)
[2024-07-08] MEDS: ACETAMINOPHEN 1000 MG/100 ML BAG IVPB PRN (21:57)
[2024-07-08] MEDS ORDERED: FAT EMULSION/OLIVE/SOY (CLINOLIPID) 250 ML EMULSION IV SCH (22:00)
[2024-07-09 09:34] LABS: HEMATOCRIT 36.6 % (32.4-45.2); HEMOGLOBIN 12.3 GM/dL (10.7-15.3); MCH 28.8 pg (25.7-33.7); MCHC 33.7 g/dl (32.0-36.0); MEAN CELL VOLUME 85.5 fl (80-96); MEAN PLT VOLUME 8.7 fl (7.5-11.1); PLATELET COUNT 375 10^3/uL (134-434); RBC 4.28 M/mm3 (3.60-5.2); RDW 17.2 % (11.6-15.6); WHITE BLOOD COUNT 13.8 K/mm3 (4.0-10.0)
[2024-07-09 09:50] LABS: POTASSIUM 3.1 mmol/L (3.5-5.1)
[2024-07-09 09:56] LABS: ALBUMIN 2.1 g/dl (3.4-5.0); MAGNESIUM 1.6 mg/dL (1.8-2.4)
[2024-07-09 09:58] LABS: CALCIUM 7.7 mg/dL (8.5-10.1)
[2024-07-09 09:59] LABS: BLOOD UREA NITROGEN 6.5 mg/dL (7-18); CREATININE 0.3 mg/dL (0.55-1.3)
[2024-07-09 10:00] LABS: TOT PROT 5.2 g/dl (6.4-8.2)
[2024-07-09 10:02] LABS: PHOSPHOROUS 1.5 mg/dL (2.5-4.9)
[2024-07-09 10:35] LABS: BILIRUBIN,TOTAL 0.6 mg/dL (0.2-1)
[2024-07-09 12:17] LABS: ANISOCYTOSIS 0; MACROCYTOSIS 0
[2024-07-09] MEDS: MAGNESIUM SULFATE IN WATER 2 GM/50 ML IVPB IVPB ONE (12:29)
[2024-07-09] MEDS: KCL 10 MEQ IVPB 10 MEQ/100 ML INFUS.BAG IVPB SCH (14:02)
[2024-07-09] MEDS: THIAMINE HCL 200 MG/2 ML VIAL IVPB SCH (18:43)
[2024-07-09] MEDS: MAGNESIUM SULF 50% (8.12 MEQ/2 ML-1 GM VIAL) IVPB ONE (18:52)
[2024-07-09] MEDS: POTASSIUM PHOSPHATE 30 MM in SODIUM CHLORIDE 500 ML IVPB ONE (19:01)
[2024-07-09] MEDS: SODIUM PHOSPHATE - 15 MM in SODIUM CHLORIDE 250 ML IVPB ONE (19:16)
[2024-07-09] MEDS: SODIUM CHLORIDE 1,000 ML IV SCH (20:58)
[2024-07-09] MEDS: POTASSIUM CHLORIDE 10 MEQ in AMINO ACIDS 4.25%/D5W 1,000 ML IV SCH (22:20)
[2024-07-09] MEDS: POTASSIUM PHOSPHATE 15 MM in SODIUM CHLORIDE 250 ML IVPB ONE (23:18)
[2024-07-10 09:55] LABS: HEMATOCRIT 35.3 % (32.4-45.2); HEMOGLOBIN 11.7 GM/dL (10.7-15.3); MCH 28.6 pg (25.7-33.7); MCHC 33.1 g/dl (32.0-36.0); MEAN CELL VOLUME 86.5 fl (80-96); MEAN PLT VOLUME 8.6 fl (7.5-11.1); PLATELET COUNT 463 10^3/uL (134-434); RBC 4.08 M/mm3 (3.60-5.2); RDW 16.9 % (11.6-15.6); WHITE BLOOD COUNT 9.7 K/mm3 (4.0-10.0)
[2024-07-10 10:39] LABS: ANISOCYTOSIS 0; MACROCYTOSIS 0
[2024-07-10 10:45] LABS: BLOOD UREA NITROGEN 4.4 mg/dL (7-18); CALCIUM 7.8 mg/dL (8.5-10.1); MAGNESIUM 2.3 mg/dL (1.8-2.4)
[2024-07-10 10:48] LABS: CREATININE 0.3 mg/dL (0.55-1.3)
[2024-07-10 10:49] LABS: PHOSPHOROUS 3.2 mg/dL (2.5-4.9)
[2024-07-10 10:50] LABS: BILIRUBIN,TOTAL 0.3 mg/dL (0.2-1); TOT PROT 5.1 g/dl (6.4-8.2)
[2024-07-10] MEDS ORDERED: METOPROLOL TARTRATE 5 MG/5 ML VIAL IVPB PRN (10:55)
[2024-07-11 09:39] LABS: BASO % 0.7 % (0-2.0); EOS % 2.5 % (0-4.5); HEMATOCRIT 34.3 % (32.4-45.2); HEMOGLOBIN 11.5 GM/dL (10.7-15.3); LYMPH % 17.5 % (8-40); MCHC 33.6 g/dl (32.0-36.0); MEAN CELL VOLUME 86.4 fl (80-96); MEAN PLT VOLUME 8.3 fl (7.5-11.1); MONO % 10.5 % (3.8-10.2); NEUT % 68.8 % (42.8-82.8); PLATELET COUNT 523 10^3/uL (134-434); RBC 3.97 M/mm3 (3.60-5.2); RDW 17.4 % (11.6-15.6)
[2024-07-11 09:59] LABS: POTASSIUM 4.2 mmol/L (3.5-5.1)
[2024-07-11 10:02] LABS: ALBUMIN 2.1 g/dl (3.4-5.0); BLOOD UREA NITROGEN 4.8 mg/dL (7-18)
[2024-07-11 10:04] LABS: CALCIUM 8.1 mg/dL (8.5-10.1)
[2024-07-11 10:07] LABS: BILIRUBIN,TOTAL 0.4 mg/dL (0.2-1); CREATININE 0.4 mg/dL (0.55-1.3)
[2024-07-11 10:08] LABS: PHOSPHOROUS 2.7 mg/dL (2.5-4.9); TOT PROT 5.5 g/dl (6.4-8.2)
[2024-07-11] MEDS: LOSARTAN POTASSIUM 25 MG TABLET PO SCH (11:49)
[2024-07-12 09:39] LABS: HEMATOCRIT 33.9 % (32.4-45.2); HEMOGLOBIN 11.5 GM/dL (10.7-15.3); MCHC 33.9 g/dl (32.0-36.0); MEAN CELL VOLUME 85.7 fl (80-96); MEAN PLT VOLUME 8.4 fl (7.5-11.1); PLATELET COUNT 594 10^3/uL (134-434); RBC 3.95 M/mm3 (3.60-5.2); RDW 17.5 % (11.6-15.6); WHITE BLOOD COUNT 10.4 K/mm3 (4.0-10.0)
[2024-07-12 10:11] LABS: ANISOCYTOSIS 0; MACROCYTOSIS 0
[2024-07-12 10:16] LABS: CALCIUM 8.5 mg/dL (8.5-10.1)
[2024-07-12 10:19] LABS: BLOOD UREA NITROGEN 3.6 mg/dL (7-18)
[2024-07-12 10:20] LABS: ALBUMIN 2.3 g/dl (3.4-5.0)
[2024-07-12 10:23] LABS: BILIRUBIN,TOTAL 0.4 mg/dL (0.2-1); CREATININE 0.4 mg/dL (0.55-1.3)
[2024-07-12 10:24] LABS: TOT PROT 5.6 g/dl (6.4-8.2)
[2024-07-13 09:15] VITALS: RESP 20
[2024-07-13 10:54] LABS: POTASSIUM 4.1 mmol/L (3.5-5.1)
[2024-07-13 10:57] LABS: RBC 3.89 M/mm3 (3.60-5.2); WHITE BLOOD COUNT 9.5 K/mm3 (4.0-10.0)
[2024-07-13 10:58] LABS: HEMATOCRIT 33.9 % (32.4-45.2); MCH 28.4 pg (25.7-33.7); MCHC 32.5 g/dl (32.0-36.0); MEAN CELL VOLUME 87.2 fl (80-96); MEAN PLT VOLUME 9.2 fl (7.5-11.1); PLATELET COUNT 585 10^3/uL (134-434); RDW 17.3 % (11.6-15.6)
[2024-07-13 11:01] LABS: CALCIUM 8.5 mg/dL (8.5-10.1)
[2024-07-13 11:02] LABS: ALBUMIN 2.2 g/dl (3.4-5.0); BLOOD UREA NITROGEN 4.2 mg/dL (7-18)
[2024-07-13 11:05] LABS: CREATININE 0.4 mg/dL (0.55-1.3)
[2024-07-13 11:06] LABS: BILIRUBIN,TOTAL 0.8 mg/dL (0.2-1); TOT PROT 5.7 g/dl (6.4-8.2)
[2024-07-13 12:01] LABS: ANISOCYTOSIS 0; MACROCYTOSIS 0
[2024-07-13 16:56] VITALS: BP 145/63; PULSE 89; TEMP 98.3
== END 2024-07-13 17:01 | disposition home or self-care (01) | DRG 329 ==
LOC: JER 12:05 → JERBED 12:51 → J7W 14:13 → OBSVTOIN 16:04 → J8W 07-03 00:11
PROVIDERS: ADMIT Internal Medicine; ATTEND Internal Medicine
PROC: 0DBA4ZZ Excision of Jejunum, Percutaneous Endoscopic Approach (ICD-10-PCS; 2024-07-02)
PROC: 0DSB4ZZ Reposition Ileum, Percutaneous Endoscopic Approach (ICD-10-PCS; 2024-07-02)
PROC: 0DBB4ZZ Excision of Ileum, Percutaneous Endoscopic Approach (ICD-10-PCS; 2024-07-02)
PROC: 3E1M48Z Irrigation of Peritoneal Cavity using Irrigating Substance, Percutaneous Endoscopic Approach (ICD-10-PCS; 2024-07-02)
PROC: 0DTF4ZZ Resection of Right Large Intestine, Percutaneous Endoscopic Approach (ICD-10-PCS; principal; 2024-07-02 15:30)
DX: K56.1 Intussusception (principal); E43 Unspecified severe protein-calorie malnutrition; E87.1 Hypo-osmolality and hyponatremia; R64 Cachexia; Z68.1 Body mass index [BMI] 19.9 or less, adult; C26.0 Malignant neoplasm of intestinal tract, part unspecified; K91.30 Postprocedural intestinal obstruction, unspecified as to partial versus complete; K63.89 Other specified diseases of intestine; I10 Essential (primary) hypertension; J44.9 Chronic obstructive pulmonary disease, unspecified; F32.A Depression, unspecified; Y83.8 Other surgical procedures as the cause of abnormal reaction of the patient, or of later complication, without mention of misadventure at the time of the procedure
CPT/HCPCS: 36415; 71045-TC-FY; 71275-TC; 74018-TC-FY; 74019-TC-FY; 74177-TC; 80048; 80053; 80061; 81003; 82436; 82962; 83690; 83735; 83930; 83935; 84100; 84133; 84300; 84443; 84484; 85025; 85610; 85730; 86140; 86850; 86900; 86901; 87040; 87086; 87186; 88307-TC; 88309-TC; 88341-TC; 88342-TC; 93005; 93010; 94760; 96365; 96375; 97116-GP; 97161-GP; 99285-25; G0378; J0131; Q9967

== ENCOUNTER → 2024-12-04 | Day surgery (SDC) | payer BC ==
[2024-12-02 08:33] VITALS: BMI 21.2
[2024-12-04 12:00] VITALS: RESP 24; TEMP 97.7
[2024-12-04 12:31] VITALS: BP 145/81; PULSE 72
== END | disposition home or self-care (01) ==
LOC: JASU-ENDO 04:27
PROVIDERS: ATTEND Internal Medicine Gastroenterology
PROC: 3E0H8KZ Introduction of Other Diagnostic Substance into Lower GI, Via Natural or Artificial Opening Endoscopic (ICD-10-PCS; 2024-12-04)
PROC: 0DBN8ZX Excision of Sigmoid Colon, Via Natural or Artificial Opening Endoscopic, Diagnostic (ICD-10-PCS; principal; 2024-12-04 10:30)
DX: C18.9 Malignant neoplasm of colon, unspecified (principal); Z98.0 Intestinal bypass and anastomosis status
CPT/HCPCS: 45380; 88305-TC; 88341-TC; 88342-TC

== ENCOUNTER 2025-01-09 07:43 | Day surgery (SDC) | payer BC ==
[2025-01-08 10:00] VITALS: BMI 19.7
[2025-01-09 09:01] LABS: BASO % 0.8 % (0-2.0); EOS % 2.8 % (0-4.5); HEMATOCRIT 41.5 % (32.4-45.2); HEMOGLOBIN 13.8 GM/dL (10.7-15.3); LYMPH % 35.5 % (8-40); MCH 29.2 pg (25.7-33.7); MCHC 33.3 g/dl (32.0-36.0); MEAN CELL VOLUME 87.7 fl (80-96); MEAN PLT VOLUME 8.9 fl (7.5-11.1); MONO % 7.5 % (3.8-10.2); NEUT % 53.4 % (42.8-82.8); PLATELET COUNT 272 10^3/uL (134-434); RBC 4.74 M/mm3 (3.60-5.2); RDW 14.7 % (11.6-15.6)
[2025-01-09 09:05] LABS: INR 0.95 (0.83-1.09); PROTHROMBIN TIME (PATIENT) 10.4 SEC (9.7-13.0)
[2025-01-09] MEDS ORDERED: MIDAZOLAM HCL 2 MG/2 ML SINGLE DOSE VIAL ONE (09:52)
[2025-01-09] MEDS ORDERED: FENTANYL CITRATE/PF 50 MCG/ML VIAL ONE (09:52)
[2025-01-09] MEDS: SODIUM CHLORIDE 500 ML IV SCH (10:30)
[2025-01-09] MEDS: FENTANYL CITRATE/PF 50 MCG/ML VIAL IVPUSH ONE (10:37)
[2025-01-09 11:26] VITALS: TEMP 97.3
[2025-01-09 13:59] VITALS: BP 119/70; PULSE 74; RESP 18
== END 2025-01-09 14:34 | disposition home or self-care (01) ==
LOC: JRADIR 07:43
PROVIDERS: ATTEND Nurse Practitioner Family
PROC: 0FD13ZX Extraction of Right Lobe Liver, Percutaneous Approach, Diagnostic (ICD-10-PCS; principal; 2025-01-09)
DX: C22.7 Other specified carcinomas of liver (principal); R93.2 Abnormal findings on diagnostic imaging of liver and biliary tract; Z85.038 Personal history of other malignant neoplasm of large intestine
CPT/HCPCS: 36415; 47000; 76705-TC; 76942-TC; 85025; 85610; 87899; 88307-TC; 88341-TC; 88342-TC

== ENCOUNTER 2025-01-14 06:33 | Day surgery (SDC) | payer BC ==
[2025-01-13 11:57] VITALS: BMI 19.9
[2025-01-14] MEDS ORDERED: ONDANSETRON 4 MG/2 ML VIAL IVPUSH PRN (13:50)
[2025-01-14] MEDS ORDERED: oxyCODONE HCL 5 MG TABLET PO PRN (13:50)
[2025-01-14] MEDS ORDERED: LACTATED RINGERS SOLUTION 1,000 ML IV SCH (14:00)
[2025-01-14] MEDS ORDERED: LIDOCAINE HCL 1%, 10 MG/ML (20ML VIAL) ONE (14:05)
[2025-01-14] MEDS ORDERED: BUPIVACAINE HCL/PF 0.5% (5MG/ML) 10 ML VIAL ONE (14:05)
[2025-01-14] MEDS ORDERED: MIDAZOLAM HCL 2 MG/2 ML SINGLE DOSE VIAL ONE (14:40)
[2025-01-14] MEDS ORDERED: PROPOFOL 40 ML ONE (14:42)
[2025-01-14] MEDS: ceFAZolin SODIUM 1 GM VIAL IVPB ONE ×2 (14:50)
[2025-01-14] MEDS: LIDOCAINE HCL 1%, 10 MG/ML (20ML VIAL) NR ONE ×2 (15:01)
[2025-01-14 17:24] VITALS: PULSE 81
[2025-01-14 18:54] VITALS: BP 157/79; RESP 18; TEMP 97.7
== END 2025-01-14 18:35 | disposition home or self-care (01) ==
LOC: JASU-SURG 06:33
PROVIDERS: ATTEND Surgery
PROC: 0JH63XZ Insertion of Tunneled Vascular Access Device into Chest Subcutaneous Tissue and Fascia, Percutaneous Approach (ICD-10-PCS; principal; 2025-01-14 11:30)
DX: C18.9 Malignant neoplasm of colon, unspecified (principal)
CPT/HCPCS: 36561; C1788; 71045-TC-FY; 71046-TC-FY; 94760; J1644

== ENCOUNTER 2025-01-22 09:20 | Day surgery (SDC) | payer BC ==
[2025-01-22 10:21] LABS: ABSOLUTE IMMATURE GRANULOCYTES 0.03 x10^3/uL (0.0-0.031); BASOPHILS # 0.04 x10^3/uL (0.01-0.08); EOSINOPHIL % 1.1 % (0.7-5.8); HEMATOCRIT 40.9 % (34.1-44.9); HEMOGLOBIN 13.5 g/dL (11.2-15.7); MEAN CELL VOLUME 87.2 fl (79.4-94.8); MEAN PLT VOLUME 10.7 fl (9.4-12.3); MONOCYTE # 0.71 x10^3/uL (0.24-0.86); MONOCYTE % 8.1 % (4.7-12.5); PLATELET COUNT # 279 x10^3/uL (182-369); RDW 14.3 % (12.4-16.4)
[2025-01-22 10:54] LABS: POTASSIUM 4.3 mmol/L (3.5-5.1)
[2025-01-22 10:56] LABS: CALCIUM 9.1 mg/dL (8.5-10.1)
[2025-01-22 10:57] LABS: ALBUMIN 3.9 g/dl (3.4-5.0); BLOOD UREA NITROGEN 9.9 mg/dL (7-18); MAGNESIUM 2.1 mg/dL (1.8-2.4)
[2025-01-22 11:00] LABS: CREATININE 0.7 mg/dL (0.55-1.3)
[2025-01-22 11:01] LABS: BILIRUBIN,TOTAL 0.3 mg/dL (0.2-1); TOT PROT 7.3 g/dl (6.4-8.2)
[2025-01-22] MEDS: SODIUM CHLORIDE 250 ML IV ONE (11:21)
[2025-01-22] MEDS: DEXAMETHASONE SODIUM PHOSPHATE 10 MG in SODIUM CHLORIDE 50 ML IVPB ONE (11:22)
[2025-01-22] MEDS: PALONOSETRON HCL 0.25 MG/5 ML VIAL IVPUSH ONE (12:28)
[2025-01-22] MEDS: ATROPINE SO4 0.4 MG/1 ML VIAL IVPUSH ONE (12:30)
[2025-01-22] MEDS: DEXTROSE 5% IVPB ONE (12:32)
[2025-01-22] MEDS: WATER IVPB ONE (12:32)
[2025-01-22] MEDS: LEUCOVORIN IVPB ONE (12:32)
[2025-01-22] MEDS: IRINOTECAN HCL 250 MG in DEXTROSE 5%-WATER - 500 ML IVPB ONE (12:33)
[2025-01-22] MEDS: FLUOROURACIL 2,500 MG/50 ML VIAL IVPUSH ONE (15:17)
[2025-01-22] MEDS: SODIUM CHLORIDE CP ONE (15:25)
[2025-01-22] MEDS: FLUOROURACIL CP ONE (15:25)
[2025-01-22 17:34] VITALS: BP 126/70; PULSE 101; RESP 18; TEMP 97.7
[2025-01-22] MEDS ORDERED: PORTA CATH FLUSH 10 ML IVPUSH PRN (17:34)
== END 2025-01-22 15:50 | disposition home or self-care (01) ==
LOC: J7W 09:20 → JONCCHEMO 09:20
PROVIDERS: ATTEND Internal Medicine Hematology & Oncology
PROC: 3E04305 Introduction of Other Antineoplastic into Central Vein, Percutaneous Approach (ICD-10-PCS; principal; 2025-01-22)
PROC: 3E043GC Introduction of Other Therapeutic Substance into Central Vein, Percutaneous Approach (ICD-10-PCS; 2025-01-22)
PROC: 3E043GC Introduction of Other Therapeutic Substance into Central Vein, Percutaneous Approach (ICD-10-PCS; 2025-01-22)
DX: Z51.11 Encounter for antineoplastic chemotherapy (principal); C18.2 Malignant neoplasm of ascending colon; C78.7 Secondary malignant neoplasm of liver and intrahepatic bile duct
CPT/HCPCS: 36415; 80053; 82378; 83735; 85025; 96368; 96374; 96375; 96413; 96415; G0498; J9206

== ENCOUNTER 2025-01-24 12:15 | Day surgery (SDC) | payer BC ==
[2025-01-24] MEDS: SODIUM CHLORIDE 500 ML IV ONE (12:18)
[2025-01-24 14:14] VITALS: RESP 20; TEMP 98.2
[2025-01-24] MEDS: PORTA CATH FLUSH 10 ML IVPUSH PRN (14:25)
[2025-01-24 14:33] VITALS: BP 112/73; PULSE 79
== END 2025-01-24 14:40 | disposition home or self-care (01) ==
LOC: J7W 12:15 → JONCCHEMO 12:15
PROVIDERS: ATTEND Internal Medicine Hematology & Oncology
PROC: 3E0437Z Introduction of Electrolytic and Water Balance Substance into Central Vein, Percutaneous Approach (ICD-10-PCS; principal; 2025-01-24)
DX: C18.9 Malignant neoplasm of colon, unspecified (principal); C18.2 Malignant neoplasm of ascending colon; C78.7 Secondary malignant neoplasm of liver and intrahepatic bile duct; Z76.89 Persons encountering health services in other specified circumstances
CPT/HCPCS: 96360; 96361

== ENCOUNTER 2025-02-05 09:01 | Day surgery (SDC) | payer BC ==
[2025-02-05 09:36] LABS: ABSOLUTE IMMATURE GRANULOCYTES 0.02 x10^3/uL (0.0-0.031); BASOPHILS # 0.04 x10^3/uL (0.01-0.08); EOSINOPHIL % 1.2 % (0.7-5.8); EOSINOPHILS # 0.07 x10^3/uL (0.04-0.36); HEMATOCRIT 37.7 % (34.1-44.9); HEMOGLOBIN 12.2 g/dL (11.2-15.7); MCHC 32.4 g/dl (32.2-35.5); MEAN CELL VOLUME 89.3 fl (79.4-94.8); MEAN PLT VOLUME 9.8 fl (9.4-12.3); MONOCYTE # 0.54 x10^3/uL (0.24-0.86); MONOCYTE % 9.3 % (4.7-12.5); PLATELET COUNT 268 x10^3/uL (182-369); RDW 14.1 % (12.4-16.4)
[2025-02-05 10:23] LABS: CHLORIDE 102 mmol/L (98-107); POTASSIUM 4.3 mmol/L (3.5-5.1); SODIUM 134 mmol/L (136-145)
[2025-02-05 10:25] LABS: ALBUMIN 3.5 g/dl (3.4-5.0); ANION GAP 5 mmol/L (4-13); BLOOD UREA NITROGEN 8.2 mg/dL (7-18); CALCIUM 8.4 mg/dL (8.5-10.1); CO2 28 mmol/L (21-32); MAGNESIUM 2.1 mg/dL (1.8-2.4)
[2025-02-05 10:26] LABS: GLUCOSE,RANDOM 99 mg/dL (74-106)
[2025-02-05 10:29] LABS: CREATININE 0.7 mg/dL (0.55-1.3); SGOT/AST 19 U/L (15-37); SGPT/ALT 17 U/L (13-61)
[2025-02-05 10:30] LABS: BILIRUBIN,TOTAL 0.3 mg/dL (0.2-1); TOT PROT 6.7 g/dl (6.4-8.2)
[2025-02-05] MEDS: SODIUM CHLORIDE 250 ML IV ONE (10:30)
[2025-02-05 10:31] LABS: ALK PHOS 114 U/L (45-117)
[2025-02-05] MEDS: PALONOSETRON HCL 0.25 MG/5 ML VIAL IVPUSH ONE (11:14)
[2025-02-05] MEDS: DEXAMETHASONE SODIUM PHOSPHATE 10 MG in SODIUM CHLORIDE 50 ML IVPB ONE (11:30)
[2025-02-05] MEDS: ATROPINE SO4 0.4 MG/1 ML VIAL IVPUSH ONE (12:09)
[2025-02-05] MEDS: DEXTROSE 5% IVPB ONE (12:14)
[2025-02-05] MEDS: WATER IVPB ONE (12:14)
[2025-02-05] MEDS: LEUCOVORIN IVPB ONE (12:14)
[2025-02-05] MEDS: IRINOTECAN HCL 250 MG in DEXTROSE 5%-WATER - 500 ML IVPB ONE (12:15)
[2025-02-05] MEDS: FLUOROURACIL CP ONE (14:25)
[2025-02-05] MEDS: SODIUM CHLORIDE CP ONE (14:25)
[2025-02-05] MEDS: FLUOROURACIL 2,500 MG/50 ML VIAL IVPUSH ONE (14:25)
[2025-02-05] MEDS: PORTA CATH FLUSH 10 ML IVPUSH PRN (14:25)
[2025-02-05 15:34] VITALS: BP 134/57; PULSE 92; RESP 20
[2025-02-05 15:37] VITALS: TEMP 98
[2025-02-05] MEDS ORDERED: PORTA CATH FLUSH 10 ML IVPUSH PRN (15:37)
== END 2025-02-05 14:35 | disposition home or self-care (01) ==
LOC: JONCCHEMO 09:01
PROVIDERS: ATTEND Internal Medicine Hematology & Oncology
PROC: 3E043GC Introduction of Other Therapeutic Substance into Central Vein, Percutaneous Approach (ICD-10-PCS; principal; 2025-02-05)
DX: Z51.11 Encounter for antineoplastic chemotherapy (principal); C18.9 Malignant neoplasm of colon, unspecified; C18.2 Malignant neoplasm of ascending colon
CPT/HCPCS: 36415; 80053; 83735; 85025; 96368; 96375; 96413; 96415; G0498; J9206

== ENCOUNTER 2025-02-07 13:15 | Day surgery (SDC) | payer BC ==
[2025-02-07] MEDS: SODIUM CHLORIDE 500 ML IV ONE (13:20)
[2025-02-07] MEDS: FAMOTIDINE 20 MG/50 ML IVPB 20 MG/50 ML MG IVPB ONE (14:58)
[2025-02-07 15:09] VITALS: TEMP 98.2
[2025-02-07] MEDS: PORTA CATH FLUSH 10 ML IVPUSH PRN (15:40)
[2025-02-07 15:48] VITALS: BP 98/55; PULSE 91; RESP 18
== END 2025-02-07 15:45 | disposition home or self-care (01) ==
LOC: JONCCHEMO 13:15 → J7W 14:30 → JONCCHEMO 15:45
PROVIDERS: ATTEND Internal Medicine Hematology & Oncology
PROC: 3E043GC Introduction of Other Therapeutic Substance into Central Vein, Percutaneous Approach (ICD-10-PCS; principal; 2025-02-07)
DX: C18.2 Malignant neoplasm of ascending colon (principal); C78.7 Secondary malignant neoplasm of liver and intrahepatic bile duct
CPT/HCPCS: 96365

== ENCOUNTER 2025-02-19 10:02 | Day surgery (SDC) | payer BC ==
[2025-02-19 10:40] LABS: ABSOLUTE IMMATURE GRANULOCYTES 0.02 x10^3/uL (0.0-0.031); BASOPHILS # 0.07 x10^3/uL (0.01-0.08); EOSINOPHIL % 1.6 % (0.7-5.8); EOSINOPHILS # 0.11 x10^3/uL (0.04-0.36); HEMATOCRIT 35.5 % (34.1-44.9); MCHC 33.8 g/dl (32.2-35.5); MEAN CELL VOLUME 89.9 fl (79.4-94.8); MEAN PLT VOLUME 9.6 fl (9.4-12.3); MONOCYTE # 0.72 x10^3/uL (0.24-0.86); MONOCYTE % 10.5 % (4.7-12.5); PLATELET COUNT 269 x10^3/uL (182-369); RDW 14.5 % (12.4-16.4)
[2025-02-19 10:57] LABS: POTASSIUM 4.3 mmol/L (3.5-5.1)
[2025-02-19 10:58] LABS: ALBUMIN 3.4 g/dl (3.4-5.0); BLOOD UREA NITROGEN 7.7 mg/dL (7-18); CALCIUM 8.8 mg/dL (8.5-10.1); MAGNESIUM 2.1 mg/dL (1.8-2.4)
[2025-02-19 11:02] LABS: CREATININE 0.7 mg/dL (0.55-1.3)
[2025-02-19 11:03] LABS: BILIRUBIN,TOTAL 0.2 mg/dL (0.2-1); TOT PROT 6.6 g/dl (6.4-8.2)
[2025-02-19] MEDS: SODIUM CHLORIDE 250 ML IV ONE (11:10)
[2025-02-19] MEDS: DEXAMETHASONE SODIUM PHOSPHATE 10 MG in SODIUM CHLORIDE 50 ML IVPB ONE (11:14)
[2025-02-19] MEDS: LEUCOVORIN IVPB ONE (11:56)
[2025-02-19] MEDS: ATROPINE SO4 0.4 MG/1 ML VIAL IVPUSH ONE (11:56)
[2025-02-19] MEDS: WATER IVPB ONE (11:56)
[2025-02-19] MEDS: DEXTROSE 5% IVPB ONE (11:56)
[2025-02-19] MEDS: PALONOSETRON HCL 0.25 MG/5 ML VIAL IVPUSH ONE (11:56)
[2025-02-19] MEDS: IRINOTECAN HCL 250 MG in DEXTROSE 5%-WATER - 500 ML IVPB ONE (11:57)
[2025-02-19] MEDS: FLUOROURACIL 2,500 MG/50 ML VIAL IVPUSH ONE (14:31)
[2025-02-19] MEDS: FLUOROURACIL CP ONE (14:31)
[2025-02-19] MEDS: SODIUM CHLORIDE CP ONE (14:31)
[2025-02-19 16:14] VITALS: BP 98/50; PULSE 84; RESP 20; TEMP 97.9
== END 2025-02-19 14:20 | disposition home or self-care (01) ==
LOC: JONCCHEMO 10:02
PROVIDERS: ATTEND Internal Medicine Hematology & Oncology
DX: Z51.11 Encounter for antineoplastic chemotherapy (principal); C20 Malignant neoplasm of rectum
CPT/HCPCS: 36415; 80053; 82378; 83735; 85025; 96367; 96368; 96375; 96411; 96413; 96415; G0498; J9206

== ENCOUNTER 2025-03-06 13:50 | Day surgery (SDC) | payer BC ==
[2025-03-06] MEDS: SODIUM CHLORIDE 500 ML IV ONE (14:01)
[2025-03-06 17:29] VITALS: RESP 20; TEMP 97.8
[2025-03-06] MEDS ORDERED: PORTA CATH FLUSH 10 ML IVPUSH PRN (17:30)
[2025-03-06 17:31] VITALS: BP 125/75; PULSE 99
== END 2025-03-06 16:30 | disposition home or self-care (01) ==
LOC: JONCCHEMO 13:50 → J7W 13:50 → JONCCHEMO 16:30
PROVIDERS: ATTEND Internal Medicine Hematology & Oncology
PROC: 3E0437Z Introduction of Electrolytic and Water Balance Substance into Central Vein, Percutaneous Approach (ICD-10-PCS; principal; 2025-03-06)
DX: C18.9 Malignant neoplasm of colon, unspecified (principal); C78.7 Secondary malignant neoplasm of liver and intrahepatic bile duct; C18.2 Malignant neoplasm of ascending colon; Z76.89 Persons encountering health services in other specified circumstances
CPT/HCPCS: 96360; 96361

== ENCOUNTER 2025-04-18 12:28 | Day surgery (SDC) | payer BC ==
[2025-04-18] MEDS: SODIUM CHLORIDE 500 ML IV ONE (12:39)
[2025-04-18 15:18] VITALS: TEMP 98.1
[2025-04-18 15:19] VITALS: BP 129/75; PULSE 97; RESP 18
[2025-04-18] MEDS ORDERED: PORTA CATH FLUSH 10 ML IVPUSH PRN (15:19)
== END 2025-04-18 14:50 | disposition home or self-care (01) ==
LOC: J7W 12:28 → JONCCHEMO 12:28
PROVIDERS: ATTEND Internal Medicine Hematology & Oncology
PROC: 3E0437Z Introduction of Electrolytic and Water Balance Substance into Central Vein, Percutaneous Approach (ICD-10-PCS; principal; 2025-04-18)
DX: C18.2 Malignant neoplasm of ascending colon (principal); C78.7 Secondary malignant neoplasm of liver and intrahepatic bile duct
CPT/HCPCS: 96360

== ENCOUNTER 2025-05-14 10:39 | Day surgery (SDC) | payer BC ==
[2025-05-14 11:03] LABS: ABSOLUTE IMMATURE GRANULOCYTES 0.01 x10^3/uL (0.0-0.031); BASOPHILS # 0.05 x10^3/uL (0.01-0.08); EOSINOPHIL % 2.1 % (0.7-5.8); EOSINOPHILS # 0.12 x10^3/uL (0.04-0.36); MCHC 33.9 g/dl (32.2-35.5); MEAN CELL VOLUME 98.5 fl (79.4-94.8); MEAN PLT VOLUME 10.1 fl (9.4-12.3); MONOCYTE # 0.73 x10^3/uL (0.24-0.86); MONOCYTE % 13.0 % (4.7-12.5); RDW 14.9 % (12.4-16.4)
[2025-05-14] MEDS: SODIUM CHLORIDE 250 ML IV ONE (11:47)
[2025-05-14 11:54] LABS: CO2 28 mmol/L (21-32); GLUCOSE,RANDOM 104 mg/dL (74-106)
[2025-05-14 11:57] LABS: CREATININE 0.7 mg/dL (0.55-1.3)
[2025-05-14 11:58] LABS: SGOT/AST 18 U/L (15-37); SGPT/ALT 18 U/L (13-61)
[2025-05-14 11:59] LABS: TOT PROT 7.0 g/dl (6.4-8.2)
[2025-05-14 12:00] LABS: ALK PHOS 156 U/L (45-117)
[2025-05-14] MEDS: DEXAMETHASONE SODIUM PHOSPHATE 10 MG in SODIUM CHLORIDE 50 ML IVPB ONE (12:47)
[2025-05-14] MEDS: PALONOSETRON HCL 0.25 MG/5 ML VIAL IVPUSH ONE (12:47)
[2025-05-14] MEDS: ATROPINE SO4 0.4 MG/1 ML VIAL IVPUSH ONE (13:19)
[2025-05-14] MEDS: WATER IVPB ONE (13:20)
[2025-05-14] MEDS: LEUCOVORIN IVPB ONE (13:20)
[2025-05-14] MEDS: DEXTROSE 5% IVPB ONE (13:20)
[2025-05-14] MEDS: IRINOTECAN HCL 240 MG in DEXTROSE 5%-WATER - 500 ML IVPB ONE (13:21)
[2025-05-14] MEDS: FLUOROURACIL 2,500 MG/50 ML VIAL IVPUSH ONE (15:19)
[2025-05-14] MEDS: FLUOROURACIL CP ONE (15:21)
[2025-05-14] MEDS: SODIUM CHLORIDE CP ONE (15:21)
[2025-05-14 18:25] VITALS: TEMP 97.9
[2025-05-14 18:32] VITALS: BP 127/76; PULSE 97; RESP 18
[2025-05-14] MEDS ORDERED: PORTA CATH FLUSH 10 ML IVPUSH PRN (18:32)
== END 2025-05-14 15:30 | disposition home or self-care (01) ==
LOC: JONCCHEMO 10:39 → J7W 10:40 → JONCCHEMO 15:30
PROVIDERS: ATTEND Internal Medicine Hematology & Oncology
DX: Z51.11 Encounter for antineoplastic chemotherapy (principal); C18.2 Malignant neoplasm of ascending colon; C78.7 Secondary malignant neoplasm of liver and intrahepatic bile duct
CPT/HCPCS: 36415; 80053; 82378; 83735; 85025; 96368; 96375; 96411; 96413; G0498; J9206

== ENCOUNTER 2025-05-28 10:49 | Day surgery (SDC) | payer BC ==
[2025-05-28 11:21] LABS: ABSOLUTE IMMATURE GRANULOCYTES 0.02 x10^3/uL (0.0-0.031); BASOPHILS # 0.05 x10^3/uL (0.01-0.08); EOSINOPHIL % 1.8 % (0.7-5.8); EOSINOPHILS # 0.11 x10^3/uL (0.04-0.36); MCHC 33.0 g/dl (32.2-35.5); MEAN CELL VOLUME 100.0 fl (79.4-94.8); MEAN PLT VOLUME 10.1 fl (9.4-12.3); MONOCYTE # 0.77 x10^3/uL (0.24-0.86); MONOCYTE % 12.3 % (4.7-12.5); RDW 14.7 % (12.4-16.4)
[2025-05-28] MEDS: SODIUM CHLORIDE 250 ML IV ONE (12:00)
[2025-05-28 12:19] LABS: CO2 29 mmol/L (21-32); GLUCOSE,RANDOM 94 mg/dL (74-106)
[2025-05-28 12:22] LABS: CREATININE 0.6 mg/dL (0.55-1.3); SGOT/AST 18 U/L (15-37); SGPT/ALT 20 U/L (13-61)
[2025-05-28 12:24] LABS: TOT PROT 6.8 g/dl (6.4-8.2)
[2025-05-28 12:25] LABS: ALK PHOS 137 U/L (45-117)
[2025-05-28] MEDS: DEXAMETHASONE INJECTION 10 MG in SODIUM CHLORIDE 50 ML IVPB ONE (12:32)
[2025-05-28] MEDS: PALONOSETRON HCL 0.25 MG/5 ML VIAL IVPUSH ONE (12:32)
[2025-05-28] MEDS: ATROPINE SO4 0.4 MG/1 ML VIAL IVPUSH ONE (12:40)
[2025-05-28] MEDS: DEXTROSE 5% IVPB ONE (13:01)
[2025-05-28] MEDS: WATER IVPB ONE (13:01)
[2025-05-28] MEDS: LEUCOVORIN IVPB ONE (13:01)
[2025-05-28] MEDS: IRINOTECAN HCL 230 MG in DEXTROSE 5%-WATER - 500 ML IVPB ONE (13:52)
[2025-05-28] MEDS: FLUOROURACIL 500 MG/10 ML VIAL IVPUSH ONE (15:32)
[2025-05-28] MEDS: FLUOROURACIL CP ONE (15:48)
[2025-05-28] MEDS: SODIUM CHLORIDE CP ONE (15:48)
[2025-05-28 18:45] VITALS: RESP 20; TEMP 97.5
[2025-05-28 18:53] VITALS: BP 137/68; PULSE 78
[2025-05-28] MEDS ORDERED: PORTA CATH FLUSH 10 ML IVPUSH PRN (18:53)
== END 2025-05-28 16:00 | disposition home or self-care (01) ==
LOC: JONCCHEMO 10:49
PROVIDERS: ATTEND Internal Medicine Hematology & Oncology
DX: Z51.11 Encounter for antineoplastic chemotherapy (principal); C18.2 Malignant neoplasm of ascending colon; C78.7 Secondary malignant neoplasm of liver and intrahepatic bile duct
CPT/HCPCS: 36415; 80053; 83735; 85025; G0498; J1100; J9190; J9206

== ENCOUNTER 2025-06-11 10:10 | Day surgery (SDC) | payer BC ==
[~2025-06-11 10:10] MED LIST: FLUOROURACIL 2,500 MG/50 ML VIAL IVPUSH ONE
[2025-06-11 10:58] LABS: ABSOLUTE IMMATURE GRANULOCYTES 0.02 x10^3/uL (0.0-0.031); BASOPHILS # 0.05 x10^3/uL (0.01-0.08); EOSINOPHIL % 1.9 % (0.7-5.8); EOSINOPHILS # 0.11 x10^3/uL (0.04-0.36); MCHC 33.5 g/dl (32.2-35.5); MEAN CELL VOLUME 98.1 fl (79.4-94.8); MEAN PLT VOLUME 10.3 fl (9.4-12.3); MONOCYTE # 0.79 x10^3/uL (0.24-0.86); MONOCYTE % 13.8 % (4.7-12.5); RDW 14.9 % (12.4-16.4)
[2025-06-11 11:25] VITALS: TEMP 97.6
[2025-06-11] MEDS: SODIUM CHLORIDE 250 ML IV ONE (11:28)
[2025-06-11 11:31] LABS: CO2 31.0 mmol/L (21-32); GLUCOSE,RANDOM 94.0 mg/dL (74-106)
[2025-06-11 11:34] LABS: SGOT/AST 15.0 U/L (15-37); SGPT/ALT 16.0 U/L (13-61)
[2025-06-11 11:35] LABS: CREATININE 0.6 mg/dL (0.55-1.3)
[2025-06-11 11:36] LABS: TOT PROT 6.2 g/dl (6.4-8.2)
[2025-06-11 11:37] LABS: ALK PHOS 124.0 U/L (45-117)
[2025-06-11] MEDS: PALONOSETRON HCL 0.25 MG/5 ML VIAL IVPUSH ONE (11:59)
[2025-06-11] MEDS: DEXAMETHASONE SODIUM PHOSPHATE 10 MG in SODIUM CHLORIDE 50 ML IVPB ONE (12:02)
[2025-06-11] MEDS: ATROPINE SO4 0.4 MG/1 ML VIAL IVPUSH ONE (12:30)
[2025-06-11] MEDS: LEUCOVORIN IVPB ONE (12:34)
[2025-06-11] MEDS: WATER IVPB ONE (12:34)
[2025-06-11] MEDS: DEXTROSE 5% IVPB ONE (12:34)
[2025-06-11] MEDS: IRINOTECAN HCL 230 MG in DEXTROSE 5%-WATER - 500 ML IVPB ONE (12:40)
[2025-06-11] MEDS: FLUOROURACIL 2,500 MG/50 ML VIAL IVPUSH ONE (14:53)
[2025-06-11] MEDS: SODIUM CHLORIDE CP ONE (14:53)
[2025-06-11] MEDS: FLUOROURACIL CP ONE (14:53)
[2025-06-11 16:10] VITALS: BP 126/57; PULSE 71; RESP 18
[2025-06-11] MEDS ORDERED: PORTA CATH FLUSH 10 ML IVPUSH PRN (16:10)
== END 2025-06-11 15:20 | disposition home or self-care (01) ==
LOC: JONCCHEMO 10:10 → J7W 10:12 → JONCCHEMO 15:20
PROVIDERS: ATTEND Internal Medicine Hematology & Oncology
PROC: 3E043GC Introduction of Other Therapeutic Substance into Central Vein, Percutaneous Approach (ICD-10-PCS; principal; 2025-06-11)
DX: C18.2 Malignant neoplasm of ascending colon (principal); C78.7 Secondary malignant neoplasm of liver and intrahepatic bile duct
CPT/HCPCS: 36415; 80053; 82378; 83735; 85025; 96360; 96361; G0498; J9206

== ENCOUNTER 2025-06-27 12:37 | Day surgery (SDC) | payer BC ==
[2025-06-27] MEDS: SODIUM CHLORIDE 500 ML IV ONE (12:45)
[2025-06-27 12:48] VITALS: TEMP 98.5
[2025-06-27] MEDS: PORTA CATH FLUSH 10 ML IVPUSH PRN (14:45)
[2025-06-27 15:12] VITALS: BP 109/57; PULSE 104; RESP 20
== END 2025-06-27 15:00 | disposition home or self-care (01) ==
LOC: JONCCHEMO 12:37 → J7W 12:38 → JONCCHEMO 15:00
PROVIDERS: ATTEND Internal Medicine Hematology & Oncology
PROC: 3E0437Z Introduction of Electrolytic and Water Balance Substance into Central Vein, Percutaneous Approach (ICD-10-PCS; principal; 2025-06-27)
DX: C18.2 Malignant neoplasm of ascending colon (principal); C78.7 Secondary malignant neoplasm of liver and intrahepatic bile duct
CPT/HCPCS: 96360

== ENCOUNTER 2025-08-01 12:20 | Day surgery (SDC) | payer BC ==
[2025-08-01] MEDS: SODIUM CHLORIDE 500 ML IV ONE (12:28)
[2025-08-01 13:55] VITALS: RESP 20; TEMP 98.8
[2025-08-01] MEDS: PORTA CATH FLUSH 10 ML IVPUSH PRN (14:30)
[2025-08-01 14:31] VITALS: BP 122/58; PULSE 96
== END 2025-08-01 14:30 | disposition home or self-care (01) ==
LOC: JONCCHEMO 12:20
PROVIDERS: ATTEND Internal Medicine Hematology & Oncology
PROC: 3E0437Z Introduction of Electrolytic and Water Balance Substance into Central Vein, Percutaneous Approach (ICD-10-PCS; principal; 2025-08-01)
DX: C18.2 Malignant neoplasm of ascending colon (principal); C78.7 Secondary malignant neoplasm of liver and intrahepatic bile duct
CPT/HCPCS: 96360

== ENCOUNTER 2025-08-27 10:36 | Day surgery (SDC) | payer BC ==
[2025-08-27 11:06] LABS: ABSOLUTE IMMATURE GRANULOCYTES 0.02 x10^3/uL (0.0-0.031); BASOPHILS # 0.05 x10^3/uL (0.01-0.08); EOSINOPHIL % 0.0 % (0.7-5.8); EOSINOPHILS # 0.00 x10^3/uL (0.04-0.36); MCHC 33.1 g/dl (32.2-35.5); MEAN CELL VOLUME 101.0 fl (79.4-94.8); MEAN PLT VOLUME 10.2 fl (9.4-12.3); MONOCYTE # 0.54 x10^3/uL (0.24-0.86); MONOCYTE % 8.1 % (4.7-12.5); RDW 13.9 % (12.4-16.4)
[2025-08-27 11:26] LABS: GLUCOSE,RANDOM 89 mg/dL (74-106); TOT PROT 6.8 g/dl (6.4-8.2)
[2025-08-27 11:27] LABS: CO2 26 mmol/L (21-32)
[2025-08-27 11:29] LABS: ALK PHOS 107 U/L (40-150)
[2025-08-27 11:31] LABS: SGOT/AST 19 U/L (5-34); SGPT/ALT 12 U/L (0-55)
[2025-08-27 11:32] LABS: CREATININE 0.64 mg/dL (0.55-1.3)
[2025-08-27] MEDS: SODIUM CHLORIDE 250 ML IV ONE (11:35)
[2025-08-27] MEDS: PALONOSETRON HCL 0.25 MG/5 ML VIAL IVPUSH ONE (12:06)
[2025-08-27] MEDS: DEXAMETHASONE SODIUM PHOSPHATE 10 MG in SODIUM CHLORIDE 50 ML IVPB ONE (12:07)
[2025-08-27] MEDS: ATROPINE SO4 0.4 MG/1 ML VIAL IVPUSH ONE (12:54)
[2025-08-27] MEDS: WATER IVPB ONE (12:55)
[2025-08-27] MEDS: DEXTROSE 5% IVPB ONE (12:55)
[2025-08-27] MEDS: LEUCOVORIN IVPB ONE (12:55)
[2025-08-27] MEDS: IRINOTECAN HCL 230 MG in DEXTROSE 5%-WATER - 500 ML IVPB ONE (12:56)
[2025-08-27] MEDS: FLUOROURACIL CP ONE (15:05)
[2025-08-27] MEDS: SODIUM CHLORIDE CP ONE (15:05)
[2025-08-27 15:41] VITALS: RESP 18; TEMP 98.2
[2025-08-27 15:48] VITALS: BP 123/67; PULSE 93
== END 2025-08-27 15:30 | disposition home or self-care (01) ==
LOC: JONCCHEMO 10:36 → J7W 10:36 → JONCCHEMO 15:30
PROVIDERS: ATTEND Internal Medicine Hematology & Oncology
DX: Z51.11 Encounter for antineoplastic chemotherapy (principal); C18.2 Malignant neoplasm of ascending colon; C78.7 Secondary malignant neoplasm of liver and intrahepatic bile duct
CPT/HCPCS: 36415; 80053; 83735; 85025; 96368; 96375; 96413; G0498; J9206

== ENCOUNTER 2025-08-29 12:45 | Day surgery (SDC) | payer BC ==
[2025-08-29] MEDS: SODIUM CHLORIDE 500 ML IV ONE (12:50)
[2025-08-29 13:41] VITALS: RESP 20; TEMP 98.4
[2025-08-29] MEDS: PORTA CATH FLUSH 10 ML IVPUSH PRN (15:00)
[2025-08-29 15:08] VITALS: BP 116/71; PULSE 91
== END 2025-08-29 15:30 | disposition home or self-care (01) ==
LOC: JONCCHEMO 12:45 → J7W 12:45 → JONCCHEMO 15:30
PROVIDERS: ATTEND Internal Medicine Hematology & Oncology
PROC: 3E0437Z Introduction of Electrolytic and Water Balance Substance into Central Vein, Percutaneous Approach (ICD-10-PCS; principal; 2025-08-29)
DX: C18.2 Malignant neoplasm of ascending colon (principal); C78.7 Secondary malignant neoplasm of liver and intrahepatic bile duct